=== PATIENT | male | born 1975 | race Caucasian/White ===

== ENCOUNTER 2018-01-23 06:04 | Inpatient (IN) ==
--- NOTE | 2018-01-22 09:21 | Anesthesia Evaluation PreOp ---
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 12/26/17 [Rx] Liraglutide [Victoza 2-Arnie] 0.6 mg SQ DAILY 01/11/18 [History] Metoprolol XL (24 HR) Succ [Toprol XL] 25 mg PO DAILY #30 tab.er.24h 01/11/18 [ Rx] Ibuprofen [Motrin Ib] 200 mg PO TID PRN 01/23/18 [History] Metformin HCl [Glucophage] 1,000 mg PO BID 01/23/18 [History] 3 Allergy/AdvReac Type Severity Reaction Status Date / Time No Known Allergies Allergy Verified 01/23/18 07:14 - Meds/Allergy Pre-op Review Medications Reviewed: Yes Allergies Reviewed: Yes Beta Blockers on Current Med List: No If Beta Blockers taken, Date/Time (Last Dose taken): today 719 Anesthesia Results - Labs Laboratory Tests 01/21/18 01/21/18 01/21/18 16:09 16:09 16:09 Hgb 16.6 Hct 47.5 Plt Count 203 PT 10.5 INR 1.0 APTT 27.9 Sodium 137 Potassium 3.9 BUN 18 Creatinine 0.93 - Imaging Additional studies: echo: Impressions: LVEF 45%. Mild segmental LV systolic dysfunction. Mild left ventricular diastolic dysfunction. Normal right ventricular structure and function. Mild mitral regurgitation. No pulmonary hypertension. 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
[~2018-01-23 06:04] MED LIST: Dextrose 50 % in Water (Vial) 30 ML, Sodium Bicarbonate 20 MEQ, Potassium Chloride 15 M... TH ONE; Insulin Human Regular 100 UNIT in 0.9 % Sodium Chloride 100 ML IV PRN; Norepinephrine 4 MG in D5% in Water 250 ML IVC PRN
[2018-01-23] MEDS ORDERED: CeFAZolin Syr 2,000MG/20 ML 2,000 MG/20 ML SYRINGE IVPB ONE (06:25)
[2018-01-23] MEDS ORDERED: Albuterol 2.5 MG/3 ML NEBULIZER IH ONE (06:26)
[2018-01-23] MEDS ORDERED: Verapamil 5 MG/2 ML VIAL ONE (06:45)
[2018-01-23] MEDS ORDERED: *HR* PHENYLEPHRINE 1,000 MCG/10 ML SYRINGE IVP ONE ×3 (06:52→10:38)
[2018-01-23] MEDS ORDERED: Famotidine 20 MG/2 ML VIAL ONE (06:52)
[2018-01-23] MEDS ORDERED: *HR* Rocuronium Bromide 50 MG/5 ML VIAL ONE (06:52)
[2018-01-23] MEDS ORDERED: *HR* Etomidate 20 MG/10 ML AMPUL IVP ONE (06:52)
[2018-01-23] MEDS ORDERED: Protamine Sulfate 250 MG/25 ML VIAL IVP ONE (06:53)
[2018-01-23] MEDS ORDERED: Tranexamic Acid 1,000 MG/10 ML VIAL ONE ×2 (06:53→09:06)
[2018-01-23] MEDS: Ringers Solution, Lactated 1,000 ML IVC SCH (06:56)
[2018-01-23] MEDS ORDERED: *HR* Midazolam HCl 5 MG/5 ML VIAL IVP ONE (06:59)
[2018-01-23] MEDS ORDERED: *HR* FentaNYL (PF) 1,000 MCG/20 ML VIAL ONE (06:59)
[2018-01-23] MEDS ORDERED: Nitroglycerin 25 MG/250 ML INFUS..BTL IVC ONE ×2 (07:01→11:08)
[2018-01-23] MEDS ORDERED: NiCARdipine 2.5 MG/10 ML Syringe IVPB ONE (07:02)
[2018-01-23] MEDS ORDERED: Insulin Human Regular 10 UNIT in 0.9 % Sodium Chloride 10 ML IV ONE (07:04)
--- NOTE | 2018-01-23 07:13 | History & Physical Report ---
Date of Encounter: 01/23/18 Time of Encounter: 07:12 24 Hour HP Update - Instructions Instructions: If the History and Physical is less than 30 days old and was completed prior to A.M. admission and or procedure and has NOT been updated on calendar day of procedure please complete this update prior to performing procedure. - Update Patient reports changes in Medical Condition: No Changes in examination, assessment, or condition: No Changes in Medication: No Preop tests/diagnostics Reviewed: Yes Pre-Op MRSA Screen: Negative Surgery Remains Indicated: Yes Consent for Planned Operative Procedure(s) Verified: Yes Review of Patient reveals the following changes:: Blood sugar is 360. Patient states that he runs his high at home. Additions to current History and Physical: Several episodes of chest pain since I saw him in the office Sunday.
[2018-01-23] MEDS: Chlorhexidine Rinse 15 ML MOUTHWASH MM SCH ×2 (07:40→20:17)
[2018-01-23] MEDS ORDERED: Lidocaine 2% Syringe 100 MG/5 ML IV ONE (08:01)
[2018-01-23] MEDS ORDERED: *HR* Phenylephrine 10 MG/ML VIAL IVC ONE (08:01)
[2018-01-23] MEDS ORDERED: *HR* Heparin 10,000 UNIT/10 ML VIAL IV ONE (08:01)
[2018-01-23] MEDS ORDERED: Mannitol 25% vial 12.5 GM/50 ML VIAL IVP ONE (08:01)
[2018-01-23] MEDS ORDERED: *HR* Magnesium Sulfate 2 GM/50 ML PIGGYBACK IVPB ONE (08:01)
[2018-01-23] MEDS ORDERED: Albumin Human 25% 25 GM/100 ML IV.SOLN IV ONE (08:01)
[2018-01-23 08:16] LABS: ABG Base Excess 0 mEq/L (-2 to 3); ABG Chloride 105 mEq/L (98-107); ABG Glucose 355 mg/dL (60-95); ABG HCO3 26 mEq/L (21-27); ABG Ionized Calcium 1.18 mmol/L (1.15-1.35); ABG Oxygen Saturation 100 % (95-98); ABG PCO2 47 mmHg (35-45); ABG PH 7.35 pH Units (7.32-7.45); ABG PO2 288 mmHg (85-104); ABG TCO2 28 mEq/L (20-26)
--- NOTE | 2018-01-23 09:10 | Anesthesia Procedures ---
Date of Encounter: 01/23/18 Time of Encounter: 08:10 Procedures: Anesthesia - Arterial Line Consent obtained: written consent Time out performed: Yes Sedation: Versed (mg): 2 Sedation: Fentanyl (mcg): 100 Supplemental Oxygen via Nasal Cannula (L/min): 2 Local Anesthetic: Lidocaine 1% Amount of Anesthetic used (mls): 1 Size (Gauge): 20 Length (inches): 5 Technique Used: sterile prep, guide wire technique, direct puncture technique Post-Procedure: line taped into place, dry sterile dressing placed Patient tolerated procedure: well, no complications Complications: none Site: Radial L - Central Line Placement Right IJ Consent obtained: written consent Time out performed: Yes Patient placed on monitor/pulse ox: Yes prep: mask, gown, gloves Central line prep: Chlorhexidine scrub Ultrasound used for placement: Yes Technique: Seldinger Lumen Inserted: Introducer Post procedure: sutured in place, good blood return, all ports aspirated, flushed, capped, sterile dressing applied Patient tolerated procedure: well, no complications Complications: none Comments: introducer placed easily, swan placed without arrythmia and wedge at 50cm
[2018-01-23 09:22] LABS: ABG Base Excess -3 mEq/L (-2 to 3); ABG Chloride 110 mEq/L (98-107); ABG Glucose 211 mg/dL (60-95); ABG HCO3 24 mEq/L (21-27); ABG Ionized Calcium 0.97 mmol/L (1.15-1.35); ABG Oxygen Saturation 99 % (95-98); ABG PCO2 49 mmHg (35-45); ABG PH 7.29 pH Units (7.32-7.45); ABG PO2 154 mmHg (85-104); ABG TCO2 25 mEq/L (20-26)
[2018-01-23 10:03] LABS: ABG Base Excess 0 mEq/L (-2 to 3); ABG Chloride 101 mEq/L (98-107); ABG Glucose 253 mg/dL (60-95); ABG HCO3 27 mEq/L (21-27); ABG Ionized Calcium 0.99 mmol/L (1.15-1.35); ABG Oxygen Saturation 100 % (95-98); ABG PCO2 56 mmHg (35-45); ABG PH 7.29 pH Units (7.32-7.45); ABG PO2 604 mmHg (85-104); ABG TCO2 29 mEq/L (20-26)
[2018-01-23 10:38] LABS: ABG Base Excess -1 mEq/L (-2 to 3); ABG Chloride 101 mEq/L (98-107); ABG Glucose 265 mg/dL (60-95); ABG HCO3 25 mEq/L (21-27); ABG Oxygen Saturation 100 % (95-98); ABG PCO2 47 mmHg (35-45); ABG PH 7.34 pH Units (7.32-7.45); ABG PO2 433 mmHg (85-104); ABG TCO2 27 mEq/L (20-26)
[2018-01-23 10:58] LABS: ABG Base Excess 1 mEq/L (-2 to 3); ABG Chloride 103 mEq/L (98-107); ABG Glucose 200 mg/dL (60-95); ABG HCO3 27 mEq/L (21-27); ABG Ionized Calcium 1.04 mmol/L (1.15-1.35); ABG Oxygen Saturation 100 % (95-98); ABG PCO2 50 mmHg (35-45); ABG PH 7.35 pH Units (7.32-7.45); ABG PO2 562 mmHg (85-104); ABG TCO2 29 mEq/L (20-26)
[2018-01-23] MEDS ORDERED: Albumin Human 5% 50.0 GM/1,000 ML VIAL ONE (11:05)
[2018-01-23 11:15] LABS: ABG Base Excess -1 mEq/L (-2 to 3); ABG Chloride 107 mEq/L (98-107); ABG Glucose 161 mg/dL (60-95); ABG HCO3 25 mEq/L (21-27); ABG Ionized Calcium 1.44 mmol/L (1.15-1.35); ABG Oxygen Saturation 98 % (95-98); ABG PCO2 51 mmHg (35-45); ABG PO2 121 mmHg (85-104); ABG TCO2 27 mEq/L (20-26)
[2018-01-23] MEDS ORDERED: Potassium Chloride 40 MEQ/200 ML BAG IVPB PRN (11:40)
[2018-01-23] MEDS ORDERED: Insulin Regular, Human 100 UNIT/ML IV PRN (11:40)
[2018-01-23] MEDS ORDERED: *HR* Dextrose 50 % in Water (Syg) 50 ML SYRINGE IVP PRN (11:40)
[2018-01-23] MEDS ORDERED: Ondansetron 4 MG/2 ML VIAL IVP PRN (11:40)
[2018-01-23] MEDS ORDERED: *HR* Promethazine 25 MG/ML VIAL IVP PRN (11:40)
[2018-01-23] MEDS ORDERED: *HR* FentaNYL (PF) 100 MCG/2 ML VIAL IVP PRN (11:40)
[2018-01-23] MEDS ORDERED: Ringers Solution, Lactated 1,000 ML IVC SCH (11:45)
[2018-01-23 12:14] LABS: ABG Base Excess -2 mEq/L (-2 to 3); ABG HCO3 26 mEq/L (21-27); ABG Oxygen Saturation 98 % (95-98); ABG PCO2 58 mmHg (35-45); ABG PH 7.26 pH Units (7.32-7.45); ABG PO2 126 mmHg (85-104); ABG TCO2 28 mEq/L (20-26); Blood Gas Modality VC; Blood Gas PEEP 5 cm H2O; Blood Gas Respiration Rate 10; Blood Gas VT 600 cc
[2018-01-23 12:21] LABS: Basophils % 0.2 %; Eosinophils # 0.2 K/mcL (0.0-0.6); Eosinophils % 0.9 %; Hematocrit 38.8 % (37.5-50.1); Immature Granulocytes % 0.6 % (0-4); Lymphocytes # 3.1 K/mcL (0.6-4.6); Lymphocytes % 14.3 %; Mean Corpuscular HGB Conc 33.8 g/dL (31.6-35.5); Mean Corpuscular Hemoglobin 29.8 pg (28.0-33.3); Mean Corpuscular Volume 88.2 fL (83.0-100.0); Mean Platelet Volume 9.8 fL (9.4-12.4); Monocytes % 7.2 %; Neutrophils # 16.4 K/mcL (1.6-8.9); Platelet Count 124 K/mcL (140-400); Red Cell Distribution Width 13.4 % (11.5-14.5); Segmented Neutrophils % 76.8 %
[2018-01-23 12:22] LABS: Hemoglobin 13.1 g/dL (12.9-16.9); Monocytes # 1.5 K/mcL (0.0-1.3)
[2018-01-23 12:31] LABS: INR 1.3
[2018-01-23 12:34] LABS: Activated Partial Thrombo Time 27.8 Seconds (26.0-36.0)
[2018-01-23] MEDS: Nitroglycerin 25 MG/250 ML INFUS..BTL IVC SCH (12:35)
[2018-01-23 12:36] LABS: BUN/Creatinine Ratio 18 (6-26); Blood Urea Nitrogen 15 mg/dL (6-20); Calcium 8.2 mg/dL (8.6-10.3); Carbon Dioxide 27 mEq/L (23-29); Chloride 111 mEq/L (98-107); Glucose 101 mg/dL (70-105); Magnesium 2.5 mg/dL (1.6-2.6); Osmolality,Calculated 293 (280-300); Sodium 141 mEq/L (136-145); eGFR For African Americans > 60 (> 60); eGFR For Non-African Americans > 60 (> 60)
[2018-01-23 12:36] LABS: ABG Base Excess 0 mEq/L (-2 to 3); ABG HCO3 27 mEq/L (21-27); ABG Oxygen Saturation 97 % (95-98); ABG PCO2 52 mmHg (35-45); ABG PH 7.32 pH Units (7.32-7.45); ABG PO2 97 mmHg (85-104); ABG TCO2 28 mEq/L (20-26); Blood Gas Modality VC; Blood Gas PEEP 5 cm H2O; Blood Gas Respiration Rate 12; Blood Gas VT 700 cc
[2018-01-23 12:37] LABS: Prothrombin Time 13.8 Seconds (9.4-12.1)
[2018-01-23] MEDS: *HR* FentaNYL (PF) 100 MCG/2 ML VIAL IVP PRN ×4 (12:40→23:50)
--- NOTE | 2018-01-23 12:45 | Operative Note ---
Date of procedure: 01/23/18 Was there an assistant production manager present: Yes Safety Council Director: Finesse Villalobos Estimated blood loss (cc): 750 Specimen: none Condition: critical Disposition: ICU Procedure in Detail: Preoperative diagnosis. Coronary artery disease. Postoperative diagnosis. Same. Procedures. Coronary artery bypass grafting 2 with the left internal mammary artery to the LAD and the aorta to the obtuse marginal branch of the circumflex with saphenous vein. Surgeon. Dr. Alonso Ramirez. Asst. Finesse Villalobos. The patient is a 42-year-old gentleman with a history of diabetes who has been on insulin in the past. Upon admission, his blood sugar was 360. He also has a history of active smoking. He was having daily angina which occurred at rest. Cardiac catheterization revealed severe coronary artery disease and he was referred for surgery. He was brought to the operating room where he was prepped and draped in standard fashion. A piece of right greater saphenous vein was harvested from the right ankle up to the right knee. This was done through 2 small incisions using the scope. These incisions were subsequently closed using a deep layer of 2-0 Vicryl and a 3-0 Vicryl subcuticular stitch. Standard median sternotomy was performed. The left internal mammary artery retractor was inserted and the left internal mammary artery was harvested in standard fashion using the Bovie electrocoagulation. The mammary retractor was removed and the standard sternal molder offbearer was inserted. Pericardium was opened in the midline and suspended with 2-0 silk stay sutures. A double pursestring of 200 [place] was placed in the aorta for the aortic cannulation site. A pursestring of 20 S[place]ilon was placed in the right atrial appendage for the venous uptake. The patient was heparinized and the aorta was cannulated without difficulty. 2 stage venous uptake cannula was inserted through the right atrial appendage. A pursestring of 3-0 silk was placed in the aorta and the cardioplegia needle was inserted through here. This was also used is an active and passive aortic vent. The patient was placed on cardiopulmonary bypass and cooled to 34.8 degrees. The aorta was crossclamped and a liter of antegrade cardioplegia was given. Topical cooling with iced saline slush was also done. Attention was first turned to the right coronary artery. The main right coronary artery and posterior descending branches were too small and diffusely diseased for grafting. Attention was next turned to the circumflex. The distal circumflex was too small for grafting. The obtuse marginal branch was dissected free with the [place] blade and found to have severe diffuse, diabetic disease. It was opened with the [place] blade and the Conde scissors and had a lumen of 1-1-1/2 mm with plaquing along all sweeney. A standard end-to-side anastomosis was constructed using the saphenous vein in a 7-0 Prolene. When this was completed, the patient received a last dose of antegrade cardioplegia. Mammary pedicle was harvested. Tonsil clamp was placed distally and was divided with the Metzenbaum scissors. Distal end was tied off with a 2-0 silk suture. Proximal end was trimmed and brought into the wound. The LAD was dissected free with the [place] blade and again was found to have severe diffuse, diabetic disease. It was opened with a [place] blade and the Conde scissors and had a lumen of 1-1-1/2 mm with moderate plaquing. A standard end-to-side anastomosis was constructed using the mammary artery and a 7-0 Prolene. When this is completed, the previously placed bulldog clamp was removed. Distal anastomosis was inspected and found to be hemostatic. Pedicle was tacked the surface a heart using 2 interrupted 5-0 silk sutures. Cross-clamp was removed and rewarming was begun. Total cross- clamp time was 46 minutes. A side-biting clamp was placed on the aorta and the cardioplegia needle was removed. A hole was made in the aorta using the [place] blade and the 4.0 mm aortic punch. A standard end-to-side anastomosis was constructed using the saphenous vein and a 6-0 Prolene. This had to be repeated once because the suture broke. At this point the side-biting clamp was removed. The graft was de-aired using #25-gauge needle and the previously placed bulldog clamp was removed. Distal anastomoses were inspected and found to be hemostatic. Proximal anastomosis was marked with a marker from Jajah. A pair of ventricular pacing wires was left. A 32 angle chest tube in the left pleural space. A 32 angle chest tube and the pericardial well. A 42 mediastinal chest tube. I did place some FloSeal around the proximal anastomosis, pacing wires and BADILLO distal anastomosis. The patient was weaned from bypass requiring no pressors for support. He was decannulated and protamine was given. Hemostasis was good and hemodynamics were good. Pericardium was left open. We did use platelet rich and platelet poor plasma on the sternum and tissues above the sternum. Sternum was closed with #7 sternal wires in simple and [id number] fashion. Fascia was run with #1 Vicryl. Subcutaneous tissues with 2-0 Vicryl. Skin was closed with a 3-0 Vicryl subcuticular stitch. The patient tolerated the procedure well and was returned to intensive care unit in satisfactory and stable condition. Total bypass time 76 minutes. Total cross-clamp time 46 minutes. He been cooled to 34.8 degrees.
[2018-01-23] MEDS ORDERED: *HR* Vecuronium 10 MG VIAL IVP PRN (12:47)
[2018-01-23] MEDS ORDERED: *HR* LORazepam 2 MG/ML VIAL IVP PRN (12:51)
[2018-01-23] MEDS: Heparin 15,000 UNIT in 0.9 % Sodium Chloride 500 ML IV SCH (15:11)
[2018-01-23] MEDS: Dextrose 50 % in Water (Vial) 30 ML, Sodium Bicarbonate 20 MEQ, Lidocaine 1% 5 ML, Insu... TH SCH (15:11)
[2018-01-23] MEDS: Norepinephrine 4 MG in D5% in Water 250 ML IVC SCH (15:13)
[2018-01-23] MEDS: Insulin Human Regular 100 UNIT in 0.9 % Sodium Chloride 100 ML IVC SCH (15:13)
[2018-01-23] MEDS: niCARdipine 40 MG/200 ML MLS IVC SCH (15:14)
[2018-01-23] MEDS: *HR* OxyCODONE/APAP 5/325 TABLET PO PRN ×2 (15:29→20:17)
[2018-01-23 15:56] LABS: ABG Base Excess -1 mEq/L (-2 to 3); ABG HCO3 26 mEq/L (21-27); ABG Oxygen Saturation 95 % (95-98); ABG PCO2 49 mmHg (35-45); ABG PH 7.33 pH Units (7.32-7.45); ABG PO2 84 mmHg (85-104); ABG TCO2 27 mEq/L (20-26); Blood Gas Modality CPAP/PS; Blood Gas PEEP 5 cm H2O; Blood Gas Pressure Support 5 cm H2O; Blood Gas Respiration Rate 16
[2018-01-23] MEDS ORDERED: CeFAZolin Pre 2,000 MG/100 ML 2,000 MG/100 ML BAG IVPB SCH (16:00)
[2018-01-23] MEDS: ceFAZolin 2,000 MG in 0.9 % Sodium Chloride 100 ML IVPB SCH ×2 (16:10→23:17)
[2018-01-23] MEDS: Nicotine 21 MG PATCH.TD24 TD SCH (16:12)
[2018-01-23 16:51] LABS: ABG Base Excess -2 mEq/L (-2 to 3); ABG HCO3 24 mEq/L (21-27); ABG Oxygen Saturation 89 % (95-98); ABG PCO2 47 mmHg (35-45); ABG PH 7.33 pH Units (7.32-7.45); ABG PO2 60 mmHg (85-104); ABG TCO2 26 mEq/L (20-26)
[2018-01-23] MEDS ORDERED: Chlorhexidine Rinse 15 ML MOUTHWASH MM SCH (21:00)
[2018-01-24] MEDS: *HR* FentaNYL (PF) 100 MCG/2 ML VIAL IVP PRN ×5 (03:08→22:59)
[2018-01-24] MEDS: Ringers Solution, Lactated 1,000 ML IVC SCH (03:10)
[2018-01-24 03:40] LABS: Basophils % 0.3 %; Eosinophils % 0.2 %; Hematocrit 31.5 % (37.5-50.1); Immature Granulocytes % 0.4 % (0-4); Lymphocytes # 1.1 K/mcL (0.6-4.6); Lymphocytes % 9.3 %; Mean Corpuscular HGB Conc 33.7 g/dL (31.6-35.5); Mean Corpuscular Volume 89.2 fL (83.0-100.0); Mean Platelet Volume 9.7 fL (9.4-12.4); Monocytes # 1.3 K/mcL (0.0-1.3); Monocytes % 11.5 %; Neutrophils # 8.8 K/mcL (1.6-8.9); Platelet Count 110 K/mcL (140-400); Red Blood Count 3.53 M/mcL (4.19-5.50); Red Cell Distribution Width 13.8 % (11.5-14.5); Segmented Neutrophils % 78.3 %
[2018-01-24 03:41] LABS: Hemoglobin 10.6 g/dL (12.9-16.9)
[2018-01-24 03:56] LABS: BUN/Creatinine Ratio 19 (6-26); Blood Urea Nitrogen 14 mg/dL (6-20); Calcium 7.9 mg/dL (8.6-10.3); Carbon Dioxide 25 mEq/L (23-29); Chloride 111 mEq/L (98-107); Glucose 119 mg/dL (70-105); Magnesium 1.8 mg/dL (1.6-2.6); Osmolality,Calculated 294 (280-300); Potassium 3.6 mEq/L (3.5-5.1); Sodium 141 mEq/L (136-145); eGFR For African Americans > 60 (> 60); eGFR For Non-African Americans > 60 (> 60)
[2018-01-24] MEDS: *HR* OxyCODONE/APAP 5/325 TABLET PO PRN ×4 (05:01→20:30)
[2018-01-24 05:06] LABS: INR 1.1; Prothrombin Time 12.4 Seconds (9.4-12.1)
[2018-01-24] MEDS: Dextrose 50 % in Water (Vial) 30 ML, Sodium Bicarbonate 20 MEQ, Lidocaine 1% 5 ML, Insu... TH SCH (07:31)
[2018-01-24] MEDS: Heparin 15,000 UNIT in 0.9 % Sodium Chloride 500 ML IV SCH (07:31)
[2018-01-24] MEDS: Chlorhexidine Rinse 15 ML MOUTHWASH MM SCH ×2 (07:55→19:18)
[2018-01-24] MEDS: Nicotine 21 MG PATCH.TD24 TD SCH (07:55)
--- NOTE | 2018-01-24 08:38 | Cardiothoracic Progress Note ---
Date of Encounter: 01/24/18 Time of Encounter: 08:34 - Assessment and plan (1) Chest pain Current Visit: No Status: Acute The assessment and plan as outlined above was discussed with the patient and/or family members who expressed understanding and agreement. All questions were answered. We will leave the patient in the ICU today to wean his norepinephrine drip and for pain control. I will start him on low-dose Lopressor. His statin had been stopped preoperatively by cardiology, but I will attempt to restart this as well. We will discontinue his arterial line, IV fluids and [place]-Simon catheter. We will leave his Mascorro catheter until tomorrow per the patient's request. Qualifiers: Chest pain type: chest pain due to myocardial ischemia Ischemic chest pain type: unstable angina pectoris Qualified Code(s): I20.0 - Unstable angina - Subjective Interval history: The patient complains of mild to moderate postoperative pain. He is still on low-dose norepinephrine. Vital Signs, Last 4 Hours Temp Pulse Resp BP Pulse Ox 01/24/18 08:00 99.5 F 97 16 110/78 99 01/24/18 07:23 16 99 01/24/18 07:15 92 01/24/18 07:00 99.5 F 93 16 119/61 99 01/24/18 06:00 99.7 F H 96 16 116/60 100 01/24/18 05:00 99.9 F H 111 20 104/53 100 01/24/18 04:55 107 Oxgyen Flow Rate Oxygen Flow Rate (LPM) 2 Clinical Data, last 8 Hours Output, Chest Tube Drainage 10 Amount [Mediastinal #3] Output, Chest Tube Drainage 0 Amount [Mediastinal #3] Output, Chest Tube Drainage 10 Amount [Mediastinal #3] Output, Chest Tube Drainage 5 Amount [Mediastinal #3] Output, Chest Tube Drainage 10 Amount [Mediastinal #3] Output, Chest Tube Drainage 0 Amount [Mediastinal #3] Output, Chest Tube Drainage 5 Amount [Mediastinal #3] Output, Chest Tube Drainage 0 Amount [Mediastinal #2] Output, Chest Tube Drainage 20 Amount [Mediastinal #2] Output, Chest Tube Drainage 0 Amount [Mediastinal #2] Output, Chest Tube Drainage 20 Amount [Mediastinal #2] Output, Chest Tube Drainage 0 Amount [Mediastinal #2] Output, Chest Tube Drainage 0 Amount [Mediastinal #2] Output, Chest Tube Drainage 10 Amount [Mediastinal #2] Output, Chest Tube Drainage 0 Amount [Mediastinal #1] Output, Chest Tube Drainage 20 Amount [Mediastinal #1] Output, Chest Tube Drainage 0 Amount [Mediastinal #1] Output, Chest Tube Drainage 0 Amount [Mediastinal #1] Output, Chest Tube Drainage 0 Amount [Mediastinal #1] Output, Chest Tube Drainage 20 Amount [Mediastinal #1] Output, Chest Tube Drainage 0 Amount [Mediastinal #1] Weight 01/22/18 01/23/18 01/24/18 23:59 23:59 23:59 Weight 75.296 kg 77 kg Lungs are clear to percussion and auscultation. Heart is in a normal sinus rhythm. All incisions are healing well without signs of infection and the sternum is stable. Chest tube drainage is minimal and there is no air leak. - Labs 01/24/18 03:20 01/24/18 03:20 Lab Results, Last 24 hours 01/23/18 01/23/18 01/23/18 12:12 12:12 12:12 WBC 21.4 H D Hgb 13.1 D Hct 38.8 Plt Count 124 L INR 1.3 APTT 27.8 Sodium 141 Potassium 4.0 Chloride 111 H Carbon Dioxide 27 BUN 15 Creatinine 0.84 Glucose 101 Calcium 8.2 L Magnesium 2.5 01/24/18 01/24/18 01/24/18 03:20 03:20 03:20 WBC 11.2 H Hgb 10.6 L D Hct 31.5 L Plt Count 110 L INR TNP APTT TNP Sodium 141 Potassium 3.6 Chloride 111 H Carbon Dioxide 25 BUN 14 Creatinine 0.74 Glucose 119 H Calcium 7.9 L Magnesium 1.8 01/24/18 04:15 WBC Hgb Hct Plt Count INR 1.1 APTT 28.0 Sodium Potassium Chloride Carbon Dioxide BUN Creatinine Glucose Calcium Magnesium - VTE Documentation of Mechanical Device: Graduated compression elastic hosiery Consult Discharge Plan - Plan Referrals: Avery Robertson MD [Primary Care Provider] -
[2018-01-24] MEDS: Aspirin 81 MG TAB.CHEW PO SCH (09:50)
[2018-01-24] MEDS: Insulin Human Regular 100 UNIT in 0.9 % Sodium Chloride 100 ML IVC SCH (12:12)
[2018-01-24] MEDS: Norepinephrine 4 MG in D5% in Water 250 ML IVC SCH (12:12)
[2018-01-24] MEDS ORDERED: D5% in Water 1,000 ML IVC PRN (12:22)
[2018-01-24] MEDS ORDERED: Dextrose Gel 15 GM/37.5 ML TUBE PO PRN ×2 (12:22)
[2018-01-24] MEDS ORDERED: *HR* Dextrose 50 % in Water (Syg) 50 ML SYRINGE IVP PRN (12:22)
[2018-01-24] MEDS: Insulin LISPRO 300 UNITS/3 ML VIAL SQ SCH (16:19)
[2018-01-24] MEDS: Nitroglycerin 25 MG/250 ML INFUS..BTL IVC SCH ×3 (19:10→19:39)
[2018-01-24] MEDS: niCARdipine 40 MG/200 ML MLS IVC SCH ×4 (19:10→19:40)
[2018-01-24] MEDS ORDERED: Insulin LISPRO 300 UNITS/3 ML VIAL SQ SCH (21:00)
[2018-01-25] MEDS: Ketorolac 15 MG/ML VIAL IVP PRN ×3 (00:27→15:07)
[2018-01-25] MEDS: niCARdipine 40 MG/200 ML MLS IVC SCH (02:38)
[2018-01-25 03:40] LABS: Basophils % 0.2 %; Eosinophils % 0.3 %; Hematocrit 32.1 % (37.5-50.1); Hemoglobin 10.6 g/dL (12.9-16.9); Immature Granulocytes % 0.5 % (0-4); Lymphocytes # 1.5 K/mcL (0.6-4.6); Lymphocytes % 14.3 %; Mean Corpuscular Hemoglobin 29.6 pg (28.0-33.3); Mean Corpuscular Volume 89.7 fL (83.0-100.0); Mean Platelet Volume 10.2 fL (9.4-12.4); Monocytes # 1.2 K/mcL (0.0-1.3); Monocytes % 11.2 %; Neutrophils # 7.9 K/mcL (1.6-8.9); Nucleated Red Blood Cells 0.3 /100 WBC (0); Platelet Count 105 K/mcL (140-400); Red Blood Count 3.58 M/mcL (4.19-5.50); Red Cell Distribution Width 13.3 % (11.5-14.5); Segmented Neutrophils % 73.5 %
[2018-01-25 04:02] LABS: BUN/Creatinine Ratio 19 (6-26); Blood Urea Nitrogen 17 mg/dL (6-20); Calcium 8.5 mg/dL (8.6-10.3); Carbon Dioxide 25 mEq/L (23-29); Chloride 103 mEq/L (98-107); Glucose 219 mg/dL (70-105); Osmolality,Calculated 290 (280-300); Potassium 4.1 mEq/L (3.5-5.1); Sodium 136 mEq/L (136-145); eGFR For African Americans > 60 (> 60); eGFR For Non-African Americans > 60 (> 60)
[2018-01-25] MEDS: *HR* OxyCODONE/APAP 5/325 TABLET PO PRN ×3 (04:04→18:54)
[2018-01-25] MEDS: Aspirin 81 MG TAB.CHEW PO SCH (08:09)
[2018-01-25] MEDS: Chlorhexidine Rinse 15 ML MOUTHWASH MM SCH ×2 (08:10→21:16)
[2018-01-25] MEDS: Nicotine 21 MG PATCH.TD24 TD SCH (08:10)
[2018-01-25] MEDS: Insulin LISPRO 300 UNITS/3 ML VIAL SQ SCH ×4 (08:11→21:19)
[2018-01-25] MEDS: Nitroglycerin 25 MG/250 ML INFUS..BTL IVC SCH (08:12)
--- NOTE | 2018-01-25 08:16 | Cardiothoracic Progress Note ---
Date of Encounter: 01/25/18 Time of Encounter: 08:13 - Assessment and plan (1) Chest pain Current Visit: No Status: Acute I discontinued the chest tubes and pacing wires. We will check a stat portable chest x-ray. I increased his Lopressor dosage to 50 mg by mouth twice a day. We will discontinue his Mascorro catheter. We will transfer the patient to the floor. Qualifiers: Chest pain type: chest pain due to myocardial ischemia Ischemic chest pain type: unstable angina pectoris Qualified Code(s): I20.0 - Unstable angina - Subjective Interval history: The patient complained of severe postoperative pain last night. This was relieved with intravenous Toradol. Vital Signs, Last 4 Hours Temp Pulse Resp BP Pulse Ox 01/25/18 07:44 98.5 F 01/25/18 07:21 16 96 01/25/18 06:00 103 14 123/73 97 01/25/18 05:00 99 14 114/70 97 Oxgyen Flow Rate Oxygen Flow Rate (LPM) 2 Clinical Data, last 8 Hours Output, Chest Tube Drainage 0 Amount [Mediastinal #3] Output, Chest Tube Drainage 6 Amount [Mediastinal #3] Output, Chest Tube Drainage 0 Amount [Mediastinal #2] Output, Chest Tube Drainage 20 Amount [Mediastinal #2] Output, Chest Tube Drainage 0 Amount [Mediastinal #1] Output, Chest Tube Drainage 0 Amount [Mediastinal #1] Weight 01/23/18 01/24/18 01/25/18 23:59 23:59 23:59 Weight 75.296 kg 79.1 kg Lungs are clear to percussion and auscultation. Heart is in a normal sinus rhythm. All incisions are healing well without signs of infection and the sternum is stable. Chest tube drainage is minimal and there is no air leak. - Labs 01/25/18 04:00 01/25/18 00:01 Lab Results, Last 24 hours 01/25/18 01/25/18 00:01 04:00 WBC 10.7 Hgb 10.6 L Hct 32.1 L Plt Count 105 L Sodium 136 Potassium 4.1 Chloride 103 Carbon Dioxide 25 BUN 17 Creatinine 0.91 Glucose 219 H Calcium 8.5 L - VTE Documentation of Mechanical Device: Graduated compression elastic hosiery Consult Discharge Plan - Plan Referrals: Avery Robertson MD [Primary Care Provider] -
[2018-01-25] MEDS ORDERED: Dextrose Gel 15 GM/37.5 ML TUBE PO PRN ×2 (09:59)
[2018-01-25] MEDS ORDERED: *HR* FentaNYL (PF) 100 MCG/2 ML VIAL IVP PRN (09:59)
[2018-01-25] MEDS ORDERED: Ondansetron 4 MG/2 ML VIAL IVP PRN (09:59)
[2018-01-25] MEDS ORDERED: D5% in Water 1,000 ML IVC PRN (09:59)
[2018-01-25] MEDS ORDERED: *HR* Promethazine 25 MG/ML VIAL IVP PRN (09:59)
[2018-01-25] MEDS ORDERED: *HR* Dextrose 50 % in Water (Syg) 50 ML SYRINGE IVP PRN (09:59)
--- NOTE | 2018-01-25 10:52 | Anesthesia Evaluation Post Op ---
Date of Encounter: 01/25/18 Time of Encounter: 10:51 - Vital Signs Vital Signs: Selected Entries 01/25/18 08:19 Temperature 98.5 F Pulse Rate 96 Respiratory Rate 12 Blood Pressure 118/70 O2 Sat by Pulse Oximetry 98 Oxygen Delivery Method Room Air - Lungs Lungs: Clear Ascult./Percussion - Airway Airway: Non-obstructed - Cardiovascular Regular Rate - Mental Status Mental Status: Alert & Oriented, Answers Appropriately - Pain Pain Scale: 3 Pain Scale used: Numeric (1 - 10) - Nausea Vomiting Nausea Vomiting: Not Present - Hydration Hydration: Tolerates oral liquids, Able to void Notes: 01/25/18 10:52 doing well POD #2 CABG. No apparent anesthesia issues.
--- NOTE | 2018-01-25 15:46 | Electrocardiograph Report ---
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
[2018-01-25] MEDS: *HR* Heparin 5,000 UNIT/ML VIAL SQ SCH (18:56)
[2018-01-25] MEDS ORDERED: Insulin DETEMIR 100 UNIT/ML X5UNITS SQ SCH (21:00)
[2018-01-26] MEDS: Ketorolac 15 MG/ML VIAL IVP PRN ×2 (00:08→20:34)
[2018-01-26] MEDS: *HR* Heparin 5,000 UNIT/ML VIAL SQ SCH ×2 (04:46→18:03)
[2018-01-26 05:05] LABS: Basophils % 0.1 %; Eosinophils # 0.1 K/mcL (0.0-0.6); Eosinophils % 0.8 %; Hematocrit 30.2 % (37.5-50.1); Hemoglobin 10.2 g/dL (12.9-16.9); Immature Granulocytes % 0.4 % (0-4); Lymphocytes # 1.3 K/mcL (0.6-4.6); Lymphocytes % 14.5 %; Mean Corpuscular HGB Conc 33.8 g/dL (31.6-35.5); Mean Corpuscular Hemoglobin 29.7 pg (28.0-33.3); Mean Platelet Volume 10.5 fL (9.4-12.4); Monocytes # 1.1 K/mcL (0.0-1.3); Monocytes % 11.6 %; Neutrophils # 6.7 K/mcL (1.6-8.9); Platelet Count 117 K/mcL (140-400); Red Blood Count 3.43 M/mcL (4.19-5.50); Red Cell Distribution Width 13.2 % (11.5-14.5); Segmented Neutrophils % 72.6 %
[2018-01-26 05:26] LABS: BUN/Creatinine Ratio 22 (6-26); Blood Urea Nitrogen 18 mg/dL (6-20); Calcium 8.2 mg/dL (8.6-10.3); Carbon Dioxide 28 mEq/L (23-29); Chloride 103 mEq/L (98-107); Glucose 207 mg/dL (70-105); Osmolality,Calculated 290 (280-300); Potassium 3.5 mEq/L (3.5-5.1); Sodium 136 mEq/L (136-145); eGFR For African Americans > 60 (> 60); eGFR For Non-African Americans > 60 (> 60)
[2018-01-26] MEDS: Insulin LISPRO 300 UNITS/3 ML VIAL SQ SCH ×4 (08:03→20:32)
[2018-01-26] MEDS: Chlorhexidine Rinse 15 ML MOUTHWASH MM SCH ×2 (08:03→20:30)
[2018-01-26] MEDS: *HR* OxyCODONE/APAP 5/325 TABLET PO PRN ×3 (08:04→18:03)
[2018-01-26] MEDS: Nicotine 21 MG PATCH.TD24 TD SCH (08:04)
[2018-01-26] MEDS: Aspirin 81 MG TAB.CHEW PO SCH (08:04)
--- NOTE | 2018-01-26 08:58 | Cardiothoracic Progress Note ---
Date of Encounter: 01/26/18 Time of Encounter: 08:55 - Assessment and plan (1) Chest pain Current Visit: No Status: Acute Hopefully, the patient can be discharged on Sunday. I strongly recommended that the patient go back on insulin at home. He will check with his primary care doctor and consider. Qualifiers: Chest pain type: chest pain due to myocardial ischemia Ischemic chest pain type: unstable angina pectoris Qualified Code(s): I20.0 - Unstable angina - Subjective Interval history: The patient has mild postoperative pain. Vital Signs, Last 4 Hours Temp Pulse Resp BP Pulse Ox 01/26/18 08:54 98.5 F 94 18 121/66 96 01/26/18 08:12 14 96 01/26/18 07:55 97 01/26/18 05:13 14 96 Oxgyen Flow Rate Oxygen Flow Rate (LPM) 2 Clinical Data, last 8 Hours Output, Urine Amount 0 Output, Urine Amount 300 Weight 01/24/18 01/25/18 01/26/18 23:59 23:59 23:59 Weight 79.1 kg 80 kg Lungs are clear to percussion and auscultation. Heart is in a normal sinus rhythm. All incisions are healing well without signs of infection and the sternum is stable. - Labs 01/26/18 00:01 01/26/18 00:01 Lab Results, Last 24 hours 01/26/18 01/26/18 00:01 00:01 WBC 9.2 Hgb 10.2 L Hct 30.2 L Plt Count 117 L Sodium 136 Potassium 3.5 Chloride 103 Carbon Dioxide 28 BUN 18 Creatinine 0.81 Glucose 207 H Calcium 8.2 L - VTE Documentation of Mechanical Device: Graduated compression elastic hosiery Consult Discharge Plan - Plan Referrals: Luis Alberto Lyons MD [Partnered Physician] - 02/07/18 3:10 pm Avery Robertson MD [Primary Care Provider] - 01/31/18 11:30 am Alonso Ramirez MD [Partnered Physician] - 02/21/18 1:00 pm
[2018-01-26] MEDS: Insulin DETEMIR 100 UNIT/ML X5UNITS SQ SCH ×2 (14:53→20:31)
[2018-01-27] MEDS: *HR* Heparin 5,000 UNIT/ML VIAL SQ SCH ×2 (06:04→16:45)
[2018-01-27] MEDS: Nicotine 21 MG PATCH.TD24 TD SCH (07:54)
[2018-01-27] MEDS: Insulin DETEMIR 100 UNIT/ML X5UNITS SQ SCH ×2 (07:54→21:39)
[2018-01-27] MEDS: Aspirin 81 MG TAB.CHEW PO SCH (07:56)
[2018-01-27] MEDS: Insulin LISPRO 300 UNITS/3 ML VIAL SQ SCH ×4 (07:56→21:40)
[2018-01-27] MEDS: Chlorhexidine Rinse 15 ML MOUTHWASH MM SCH ×2 (07:56→21:42)
--- NOTE | 2018-01-27 09:37 | Cardiothoracic Progress Note ---
Date of Encounter: 01/27/18 Time of Encounter: 09:34 - Assessment and plan (1) Chest pain Current Visit: No Status: Acute Hopefully, the patient can be discharged tomorrow. He is requiring a large dose of insulin. I will ask the hospitalist to see him and recommend an insulin regimen for home use. He will then follow up with his new primary care doctor for further instructions. The patient is agreeable to going back on insulin. He has been on insulin in the past. Qualifiers: Chest pain type: chest pain due to myocardial ischemia Ischemic chest pain type: unstable angina pectoris Qualified Code(s): I20.0 - Unstable angina - Subjective Interval history: The patient is ambulating and doing well. He has no complaints. Lungs are clear to percussion and auscultation. Heart is in a normal sinus rhythm. All incisions are healing well without signs of infection and the sternum is stable. - Labs 01/26/18 00:01 01/26/18 00:01 - VTE Documentation of Mechanical Device: Graduated compression elastic hosiery Consult Discharge Plan - Plan Referrals: Luis Alberto Lyons MD [Partnered Physician] - 02/07/18 3:10 pm Avery Robertson MD [Primary Care Provider] - 01/31/18 11:30 am Alonso Ramirez MD [Partnered Physician] - 02/21/18 1:00 pm
[2018-01-27] MEDS: Ketorolac 15 MG/ML VIAL IVP PRN ×2 (13:10→21:41)
--- NOTE | 2018-01-27 14:19 | Internal Medicine Consult Note ---
Date of Encounter: 01/27/18 Time of Encounter: 10:30 - Assessment and plan (1) CAD (coronary artery disease) Current Visit: Yes Status: Acute Assessment and plan: presented for elective CABG, which was done on 01/23/18; local wound and postoperative care per primary team; on ASA, statin, beta olga; Qualifiers: Coronary Disease-Associated Artery/Lesion type: bypass graft [place] vs. transplanted heart: [place] heart Associated angina: without angina Qualified Code(s): I25.810 - Atherosclerosis of coronary artery bypass graft(s) without angina pectoris (2) Diabetes mellitus Current Visit: Yes Status: Chronic Assessment and plan: check HbA1C; blood sugars noted to bee elevated; patient required a total of 57 units of insulin in the last 24hours; may be discharged on 20-25units BID Levemir; explained to the patient, agreeable; diabetic diet; lifestyle modifications; Will continue to monitor closely along with you; thank you for the Consult. 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 Diabetes mellitus complication status: with hyperglycemia Qualified Code(s): E11.65 - Type 2 diabetes mellitus with hyperglycemia (3) Essential hypertension Current Visit: Yes Status: Chronic (4) Tobacco abuse Current Visit: Yes Status: Chronic Assessment and plan: smoking cessation strongly encouraged; continue Nicotine transdermal patch while in the hospital; patient is motivated to quit smoking as an outpatient; - Time Spent With Patient Total time spent is greater than 50% in coordination of care (as documented) at patient's floor/unit and/or counseling patient: Internal Medicine - CN: HPI - Data of Consult Patient: new to practice Consult date: 01/27/18 Requesting Physician: Alonso Ramirez - Consult Narrative History of present illness: Mr. Rios is a 42 year old male with h/o- DM, HTN, tobacco abuse, who was admitted for elective CABG. He had surgery done on 01/23/18 and had an uneventful recovery. His blood sugars are noted to be elevated and Hospitalist service was consulted for insulin regimen. 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 He was recently admitted at [place] [facility] [facility] for chest pain, where he was noted to have hyperglycemia, and started on Metformin, after which his PCP added Victoza. He does have a glucometer at home and knows how to check his blood sugars. He reports improvement in his postop chest pain, able to ambulate well. No dyspnea, leg swelling, abdominal pain, nausea or vomiting. Past Med Surg Social Fam HX - Past Medical History Source: patient Medical history: diabetes, hypertension Psychiatric history: no psych history - Past Surgical History Surgical History: coronary bypass (CABG) - Social History Smoking Status: Current every day smoker Packs per day: 1 Smokeless Tobacco Status: No Alcohol use: none, occasionally Drug use: none Occupational status: employed Current living situation: Home, With Family Activity Level: Independent ambulation Recent Out of Country Travel Within the Last 8 Weeks: No Exposure or Possible Exposure to Illness During Travel: No - Family History Mother Hx Family Neurologic Disorders: Yes (CVA) Grandfather Hx Family Cardiac Disorders: Yes (CAD) - Constitutional Constitutional: no chills, no fatigue, no fever(s) - Cardiovascular Cardiovascular ROS IM: chest pain, no dyspnea, no dyspnea on exertion, no edema - Respiratory Respiratory: no cough, no dyspnea, no dyspnea on exertion - Gastrointestinal Gastrointestinal: no abdominal pain, no diarrhea, no nausea, no vomiting - Musculoskeletal Musculoskeletal ROS IM: no back pain, no muscle weakness - Neurological Neurological ROS: no behavioral changes, no confusion, no paresthesias, no weakness - Endocrine Endocrine IM: no excessive sweating, no fatigue, no polyphagia - Hematologic/Lymphatic Hematologic/Lymphatic: no easy bleeding, no easy bruising Internal Medicine - CN: Meds Aspirin Enteric Coated [Aspirin EC] 81 mg PO DAILY tablet. 12/26/17 [Rx] Liraglutide [Victoza 2-Arnie] 0.6 mg SQ DAILY 01/11/18 [History] Metoprolol XL (24 HR) Succ [Toprol XL] 25 mg PO DAILY #30 tab.er.24h 01/11/18 [ Rx] Ibuprofen [Motrin Ib] 200 mg PO TID PRN 01/23/18 [History] Metformin HCl [Glucophage] 1,000 mg PO BID 01/23/18 [History] 3 Allergy/AdvReac Type Severity Reaction Status Date / Time No Known Allergies Allergy Verified 04/18/18 07:14 Internal Medicine - CN: Exam - Constitutional Vitals: Temp Pulse Resp BP Pulse Ox 98.1 F 84 17 141/84 94 01/27/18 11:09 01/27/18 11:09 01/27/18 11:50 01/27/18 11:09 01/27/18 11:50 General appearance IM: Present: A&O X 3, answers questions appropriately - Eye Eye exam: Present: EOMI, PERRL - Neck Neck exam general surgery: Present: full ROM - Respiratory Respiratory exam: Present: decreased breath sounds (at right base), CTAB - Cardiovascular Cardiovascular exam IM: Present: RRR, +S1, +S2 - GI/Abdominal GI/Abdominal exam IM: Present: normal bowel sounds, soft - Extremities Exam Extremities exam IM: Present: full ROM. Absent: pedal edema - Neurological Exam Neurological exam: Present: alert, CN II-XII intact, oriented X3, no focal deficits Internal Medicine - CN: Reslt - Labs CBC & Chem 7: 01/26/18 00:01 01/26/18 00:01 - ABG Interpretation ABG results: ABG ABG pH 7.33 pH Units (7.32-7.45) 01/23/18 16:49 ABG pCO2 47 mmHg (35-45) H 01/23/18 16:49 ABG pO2 60 mmHg (85-104) L 01/23/18 16:49 ABG O2 Saturation 89 % (95-98) L 01/23/18 16:49 PT/INR, D-dimer PT 12.4 Seconds (9.4-12.1) H 01/24/18 04:15 Consult Discharge Plan - Plan Referrals: Luis Alberto Lyons MD [Partnered Physician] - 02/07/18 3:10 pm Avery Robertson MD [Primary Care Provider] - 01/31/18 11:30 am Alonso Ramirez MD [Partnered Physician] - 02/21/18 1:00 pm
[2018-01-28 04:06] LABS: Basophils % 0.3 %; Eosinophils # 0.1 K/mcL (0.0-0.6); Eosinophils % 1.9 %; Hematocrit 30.7 % (37.5-50.1); Hemoglobin 10.3 g/dL (12.9-16.9); Immature Granulocytes % 0.2 % (0-4); Lymphocytes # 1.7 K/mcL (0.6-4.6); Lymphocytes % 29.3 %; Mean Corpuscular HGB Conc 33.6 g/dL (31.6-35.5); Mean Corpuscular Hemoglobin 29.4 pg (28.0-33.3); Mean Corpuscular Volume 87.7 fL (83.0-100.0); Mean Platelet Volume 9.4 fL (9.4-12.4); Monocytes # 0.8 K/mcL (0.0-1.3); Monocytes % 13.1 %; Neutrophils # 3.3 K/mcL (1.6-8.9); Platelet Count 191 K/mcL (140-400); Red Cell Distribution Width 13.3 % (11.5-14.5); Segmented Neutrophils % 55.2 %
[2018-01-28 04:24] LABS: BUN/Creatinine Ratio 15 (6-26); Blood Urea Nitrogen 11 mg/dL (6-20); Calcium 8.3 mg/dL (8.6-10.3); Carbon Dioxide 27 mEq/L (23-29); Chloride 107 mEq/L (98-107); Glucose 67 mg/dL (70-105); Osmolality,Calculated 294 (280-300); Potassium 3.5 mEq/L (3.5-5.1); Sodium 143 mEq/L (136-145); eGFR For African Americans > 60 (> 60); eGFR For Non-African Americans > 60 (> 60)
[2018-01-28] MEDS: *HR* Heparin 5,000 UNIT/ML VIAL SQ SCH (06:21)
[2018-01-28 07:29] LABS: Estimated Average Glucose 283 mg/dl; Hemoglobin A1C 11.5 %
[2018-01-28] MEDS: Insulin LISPRO 300 UNITS/3 ML VIAL SQ SCH (07:43)
[2018-01-28] MEDS: Nicotine 21 MG PATCH.TD24 TD SCH (07:44)
[2018-01-28] MEDS: Chlorhexidine Rinse 15 ML MOUTHWASH MM SCH (07:44)
[2018-01-28] MEDS: Insulin DETEMIR 100 UNIT/ML X5UNITS SQ SCH (07:45)
[2018-01-28] MEDS: Aspirin 81 MG TAB.CHEW PO SCH (07:45)
--- NOTE | 2018-01-28 08:47 | Discharge Summary ---
Orders not resulted at time of discharge: Pending orders 01/21/18 16:14 Red Blood Cells [BBK] Routine Date of Encounter: 01/28/18 Time of Encounter: 08:39 - Discharge Diagnosis (1) Chest pain Priority: Primary Status: Acute Qualifiers: Chest pain type: chest pain due to myocardial ischemia Ischemic chest pain type: unstable angina pectoris Qualified Code(s): I20.0 - Unstable angina - Hospital Course Hospital course: Mr. Rios is a 42 year old male The patient is a 42-year-old gentleman with a history of diabetes. He has been on insulin in the past. He was also an active smoker. Cardiac catheterization revealed severe coronary artery disease and he was referred for surgery. On , I took him to the operating room for coronary artery bypass grafting 2 , utilizing the left internal mammary artery. On January 24, the patient was left in the ICU for pain control. On January 25, his chest tubes and pacing wires were removed and he was transferred to the floor. On January 27 I did have the hospitalist service see the patient to place him back on insulin. He was agreeable to going on insulin and will follow up with his primary care doctor to monitor. The patient otherwise did well and was discharged on January 28. At that time he was afebrile. Lungs were clear to percussion and auscultation. Heart was in a normal sinus rhythm. All incisions were healing well without signs of infection and the sternum was stable. Discharge medications are on the med rec include Percocet for pain. He was given a one-week supply and he was postoperative. Appropriate precautions were given. He was to return to his previous diabetic diet. He was to avoid heavy lifting for a total of 3 months after surgery, but to walk as much as possible. He was to avoid driving for 1 month. He was to follow up and see me in the office in 4 weeks as directed. He was to follow-up with his primary care doctor and cartridge filler as directed. He was to call sooner for any difficulties. - Time Spent with Patient Total time spent providing and/or coordinating discharge services: - Discharge Medications Prescriptions: OxyCODONE/APAP 5/325 [Percocet 5/325 MG] 1 each PO Q4HR PRN 7 Days #20 tablet PRN Reason: Severe Pain Aspirin 81 mg PO DAILY #60 tab.chew Metoprolol [Lopressor] 50 mg PO BID #60 tablet Nicotine Patch [Nicoderm] 21 mg TD DAILY #14 patch.td24 Home Medications: Liraglutide [Victoza 2-Arnie] 0.6 mg SQ DAILY 01/11/18 [History] Ibuprofen [Motrin Ib] 200 mg PO TID PRN 01/23/18 [History] Metformin HCl [Glucophage] 1,000 mg PO BID 01/23/18 [History] Aspirin 81 mg PO DAILY #60 tab.chew 01/28/18 [Rx] Insulin DETEMIR [Levemir] 20 unit SQ BID [id number] 01/28/18 [Rx] Metoprolol [Lopressor] 50 mg PO BID #60 tablet 01/28/18 [Rx] Nicotine Patch [Nicoderm] 21 mg TD DAILY #14 patch.td24 01/28/18 [Rx] OxyCODONE/APAP 5/325 [Percocet 5/325 MG] 1 each PO Q4HR PRN 7 Days #20 tablet [Rx] Allergies/Adverse Reactions: 3 Allergy/AdvReac Type Severity Reaction Status Date / Time No Known Allergies Allergy Verified 01/23/18 07:14 Date of admission: 01/23/18 09:10 Primary care physician: Avery Robertson MD Consults: 01/23/18 07:14 Consult for Pharmacy Education [CONS] Routine Reason for Consult: open heart Time Notified: 07:15 Call Completed: No 01/23/18 11:40 Consult to Cardiac Rehabilitation-Phase1 [CONS] Routine Comment: Reason for Consult: Post open heart Call Completed: Yes Consult to Stocking And Box Shop Supervisor [CONS] Routine Reason for SW Consult: open heart 01/25/18 09:59 Consult for Pharmacy Education [CONS] Routine Reason for Consult: Post-Op Heart Call Completed: Yes Consult to Occupational Therapy [CONS] Routine Comment: Evaluate, develop and implement POC Reason for Consult: Post-Op Heart Does patient have active BEDREST order?: No Is patient medically & hemodynamically stable?: Yes Consult to Physical Therapy [CONS] Routine Comment: Evaluate, develop and implement POC Reason for Consult: Post open heart Does patient have active BEDREST order?: No Is patient medically & hemodynamically stable?: Yes 01/27/18 09:38 Consult to Hospitalist [CONS] Routine Consulting Provider: Hospitalist Angela Reason for Consult: insulin management Call Completed: Yes Procedure(s) Performed: 01/23/2018. Coronary artery bypass grafting 2, utilizing the left internal mammary artery. Discharging clinician: Alonso Ramirez Anticipated date of discharge: 01/28/18 Physical Examination Vital Signs, Last 4 Hours Temp Pulse Resp BP Pulse Ox 01/28/18 07:37 18 95 01/28/18 07:03 98.2 F 80 18 152/95 96 - Patient Status Disposition: Home, Self-Care Functional capacity at discharge: independent ambulation Overall status at discharge: patient is progressing back to baseline - Discharge Instructions Follow Up With: Luis Alberto Lyons MD [Partnered Physician] - 02/07/18 3:10 pm Avery Robertson MD [Primary Care Provider] - 01/31/18 11:30 am Alonso Ramirez MD [Partnered Physician] - 02/21/18 1:00 pm [facility] Aspirin Cont/Prescribed at DC: Yes Beta Reji Cont/Prescribed at DC: Yes Statin Cont/Prescribed at DC: Yes LAZARO/ARB Cont/Prescribed at DC: Not indicated - VTE Documentation of Mechanical Device: Graduated compression elastic hosiery
[2018-01-28 09:32] VITALS: BP 116/63
--- NOTE | 2018-01-28 10:25 | Internal Med Progress Note ---
Date of Encounter: 01/28/18 Time of Encounter: 10:22 - Assessment and plan (1) CAD (coronary artery disease) Current Visit: Yes Status: Acute Qualifiers: Coronary Disease-Associated Artery/Lesion type: bypass graft [place] vs. transplanted heart: [place] heart Associated angina: without angina Qualified Code(s): I25.810 - Atherosclerosis of coronary artery bypass graft(s) without angina pectoris (2) Diabetes mellitus Current Visit: Yes Status: Chronic Assessment and plan: HbA1C noted to be 11.5%, uncontrolled DM; FBS are well-controlled with increase in premeal blood sugars during the day; will decrease pm dose and increase am dose of long acting insulin. Patient is well aware of the use of Glucometer and insulin administration; to continue Metformin and Victoza; to maintain blood sugar log and f/up with PCP; diabetic diet and cardiac rehab; patient verbalized understanding; Patient is to be discharged home today per primary service. thank you for the Consult. 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 Diabetes mellitus complication status: with hyperglycemia Qualified Code(s): E11.65 - Type 2 diabetes mellitus with hyperglycemia (3) Essential hypertension Current Visit: Yes Status: Chronic (4) Tobacco abuse Current Visit: Yes Status: Chronic - Time Spent With Patient Total time spent is greater than 50% in coordination of care (as documented) at patient's floor/unit and/or counseling patient: - Subjective Interval history: Reports feeling well; no nausea, vomiting, dyspnea; able to ambulate independently; post op chest pain improving; - Constitutional Vitals: Temp Pulse Resp BP Pulse Ox 98.1 F 76 16 116/63 96 01/28/18 09:27 01/28/18 09:27 01/28/18 09:27 01/28/18 09:27 01/28/18 09:27 General appearance: Present: A&O X 3, answers questions appropriately - Respiratory Respiratory exam: Present: CTAB. Absent: accessory muscle use, rales, rhonchi, wheezes - Cardiovascular Cardiovascular exam: Present: RRR, +S1, +S2. Absent: diastolic murmur, gallop, rubs, systolic murmur Internal Medicine: Result - Labs CBC & Chem 7: 01/28/18 03:45 01/28/18 03:45 Labs: Short CBC 01/28/18 Range/Units 03:45 WBC 5.9 (4.3-11.1) K/mcL Hgb 10.3 L (12.9-16.9) g/dL Hct 30.7 L (37.5-50.1) % Plt Count 191 D (140-400) K/mcL Neutrophils # 3.3 (1.6-8.9) K/mcL BMP 01/28/18 03:45 Sodium 143 Potassium 3.5 Chloride 107 Carbon Dioxide 27 BUN 11 Creatinine 0.74 Glucose 67 L Calcium 8.3 L - ABG Interpretation ABG results: ABG ABG pH 7.33 pH Units (7.32-7.45) 01/23/18 16:49 ABG pCO2 47 mmHg (35-45) H 01/23/18 16:49 ABG pO2 60 mmHg (85-104) L 01/23/18 16:49 ABG O2 Saturation 89 % (95-98) L 01/23/18 16:49 PT/INR, D-dimer PT 12.4 Seconds (9.4-12.1) H 01/24/18 04:15 - VTE Documentation of Mechanical Device: Graduated compression elastic hosiery Consult Discharge Plan - Plan Instructions: Metoprolol (By mouth), Oxycodone/Acetaminophen (By mouth), Aspirin (By mouth), Nicotine (Absorbed through the skin), Coronary Artery Bypass Graft (DC) Referrals: Luis Alberto Lyons MD [Partnered Physician] - 02/07/18 3:10 pm Avery Robertson MD [Primary Care Provider] - 01/31/18 11:30 am Alonso Ramirez MD [Partnered Physician] - 02/21/18 1:00 pm Prescriptions: OxyCODONE/APAP 5/325 [Percocet 5/325 MG] 1 each PO Q4HR PRN 7 Days #20 tablet PRN Reason: Severe Pain Aspirin 81 mg PO DAILY #60 tab.chew Metoprolol [Lopressor] 50 mg PO BID #60 tablet Nicotine Patch [Nicoderm] 21 mg TD DAILY #14 patch.td24
== END 2018-01-28 12:05 | disposition home or self-care (01) | DRG 236 ==
LOC: SAMDAY 06:04 → ICNU 09:10 → 2NNU 01-25 09:59
PROVIDERS: ADMIT Thoracic Surgery (Cardiothoracic Vascular Surgery); ATTEND Thoracic Surgery (Cardiothoracic Vascular Surgery)